=== PATIENT | male | born 1990 | race African-American/Black ===

== ENCOUNTER 2019-06-03 07:40 | Emergency (ER) | payer SELFPAY ==
[2019-06-03 07:48] VITALS: BP 122/77; PULSE 68; RESP 16; TEMP 36.6; O2SAT 100
--- NOTE | 2019-06-03 08:01 | ED.HA ---
HPI - Headache General Chief Complaint: Headache Stated Complaint: cox/abd pain x2 days Time Seen by Provider: 06/03/19 08:01 Source: patient and RN notes reviewed Mode of arrival: ambulatory Limitations: no limitations History of Present Illness HPI Narrative: Pt is a 29 y/o male who presents to the ED with c/o a mild headache located at his temporal lobes which began 2 days ago. Pt reports upper epigastric ABD pain and nausea, but denies a fever, chills, vomiting, or pain anywhere else in his body. He states he would like a work release note. MD elicited complaint: headache Onset (ago): day(s) (2 days ago) Onset description: suddenly Location: temporal Severity: mild Exacerbating factors: none Relieving factors: nothing Associated symptoms: nausea and other (upper epigastric ABD pain) Related Data Home Medications Medication Instructions Recorded Confirmed No Home Medications 06/03/19 06/03/19 Allergies Allergy/AdvReac Type Severity Reaction Status Date / Time No Known Allergies Allergy Verified 06/03/19 07:50 Review of Systems Review of Systems: All systems reviewed & are unremarkable except as noted in HPI and below Constitutional: Constitutional: Denies chills, Denies fever(s) and Denies other (pain anywhere else in her body) Gastrointestinal: Gastrointestinal: Reports abdominal pain (upper epigastric), Reports nausea and Denies vomiting Neurologic: Reports headache(s) (mild ) PMFSH Past Medical History Medical History (Updated 06/03/19 @ 08:18 by Tam Velez MD) No pertinent past medical history Surgical History Surgical History (Updated 06/03/19 @ 08:13 by Fatoumata Persaud) No pertinent past surgical history Social History Social History (Updated 06/03/19 @ 08:13 by Fatoumata Persaud) Smoking status: Smoker, status unknown Exam Narrative: Exam Narrative: GENERAL: Well-appearing, well-nourished, and in no acute distress. HEAD: Normocephalic, atraumatic. EYES: PERRLA and EOMI. ENT: Nares clear, no rhinorrhea or epistaxis. Mucous membranes moist. NECK: Supple. CHEST: Clear to auscultation. No respiratory distress. HEART: Regular rate and rhythm. No murmur heard. Normal peripheral pulses. ABDOMEN: Soft, non tender, non distended, normal active bowel sounds. EXTREMITIES: Normal range of motion. No edema. SKIN: Warm, dry, no rash. NEURO: No focal deficits. Alert and oriented x3. PSYCH: Normal mood and affect. Course Course Emergency Course: Patient states he is here for work note. He does not want any medication Vital Signs Vital signs: Vital Signs Temperature 36.6 C 06/03/19 07:48 Pulse Rate 68 06/03/19 07:48 Respiratory Rate 16 06/03/19 07:48 Blood Pressure 122/77 06/03/19 07:48 Pulse Oximetry 100 06/03/19 07:48 Temperature 36.6 C 06/03/19 07:48 Pulse Rate 68 06/03/19 07:48 Respiratory Rate 16 06/03/19 07:48 Blood Pressure 122/77 06/03/19 07:48 Pulse Oximetry 100 06/03/19 07:48 Discharge Plan Discharge Clinical Impression: Headache Patient Disposition: Home, Self-Care Condition: Stable Instructions: Acute Headache (ED) Prescriptions: No Action No Home Medications RF: 0 Follow-up/Referrals: PHYSICIAN,YARN WINDER [Primary Care Provider] - Stand Alone Forms: Work/School Release IP Time of Disposition: :17
[2019-06-03 08:45] VITALS: RESP 16
== END 2019-06-03 08:45 | disposition home or self-care (01) ==
LOC: ANHED 08:39
PROVIDERS: Emergency Provider Family Medicine
DX: R51 Headache (principal)
CPT/HCPCS: 99283